=== PATIENT | female | born 1945 | race Two or more races ===

== ENCOUNTER 2019-06-15 09:29 | Outpatient (CLI) | payer MEDICARE | END 2019-06-15 23:59 | disposition home or self-care (01) | LOC: RAD 09:29 | PROVIDERS: ATTEND Family Medicine | DX: R05 Cough (principal) | CPT/HCPCS: 71046 ==

== ENCOUNTER 2020-02-12 09:38 | Emergency (ER) | payer MEDICARE ==
[~2020-02-12] VITALS: Ht 152.4 cm; Wt 47.9 kg
[2020-02-12 09:42] VITALS: BP 153/90
--- NOTE | 2020-02-12 09:59 | NUR ---
ER PA WAS IN TO SEE PT. PT HAS MILD BEE STING TO R TEMPORAL AREA. NO OTHER SYMPTOMS, NO DISTRESS.
--- NOTE | 2020-02-12 10:18 | NUR ---
D/C INSTRUCTIONS RV'WD WITH PT. PT STATES SHE HAS AN APPT WITH HER PCP 02/26. AMBULATED OUT OF ED WITHOUT DIFFICULTY.
[2020-02-12] MEDS ORDERED: LISI-167 PO (10:20)
== END 2020-02-12 10:18 | disposition home or self-care (01) ==
LOC: ED 10:06
DX: T63.441A Toxic effect of venom of bees, accidental (unintentional), initial encounter (principal); Y92.89 Other specified places as the place of occurrence of the external cause
CPT/HCPCS: 99281

== ENCOUNTER → 2020-08-05 | Outpatient (CLI) | payer MEDICARE ==
[~2020-08-05] MED LIST: LISI-167 PO
[2020-08-05 09:54] LABS: BASOPHILS % (AUTO) 2 % (0-1); EOSINOPHILS % (AUTO) 3 % (1-7); LYMPHOCYTES % (AUTO) 41 % (22-44); MEAN CORPUSCULAR HGB CONC 34.5 g/dL (32.4-35.8); MEAN PLATELET VOLUME 6.6 fL (7.4-10.4); MONOCYTES % (AUTO) 5 % (2-9); NEUTROPHILS % (AUTO) 49 % (42-75); PLATELET COUNT 310 x10^3/uL (130-400); RED BLOOD COUNT 4.85 x10^6/uL (3.82-5.3); RED CELL DISTRIBUTION WIDTH 13.5 % (9.6-15.2)
[2020-08-05 09:59] LABS: ALANINE AMINOTRANSFERASE 21 U/L (12-78); ALBUMIN 4.2 g/dL (3.4-5.0); ANION GAP 5 mmol/L (5-15); CALCIUM 9.4 mg/dL (8.5-10.1); CHLORIDE 109 mmol/L (98-107); CHOLESTEROL, TOTAL 185 mg/dL (140-239); CREATININE 0.77 mg/dL (0.55-1.02)
[2020-08-05 10:01] LABS: ALKALINE PHOSPHATASE 75 U/L (45-117); BILIRUBIN,TOTAL 0.8 mg/dL (0.2-1.0); HDL CHOL % 50 % (28-40); HDL CHOLESTEROL (DIRECT) 92 mg/dL (40-60); LDL CHOLESTEROL,CALCULATED 80 mg/dL (54-169); LDL/HDL RATIO 0.9 (0.5-3.0); TOTAL PROTEIN 7.4 g/dL (6.4-8.2); TRIGLYCERIDES 67 mg/dL (50-200); VLDL CHOLESTEROL 13 mg/dL (0-25)
[2020-08-05 10:08] LABS: MD NO
== END | disposition home or self-care (01) ==
LOC: LAB 09:30
PROVIDERS: ATTEND Family Medicine
DX: I10 Essential (primary) hypertension (principal); R73.9 Hyperglycemia, unspecified
CPT/HCPCS: 36415; 80053; 80061; 83036; 85025